=== PATIENT | female | born 1995 | race Caucasian/White ===

== ENCOUNTER 2017-12-11 07:00 | Inpatient (IN) | payer OTHER ==
[~2017-12-11] VITALS: Ht 172.7 cm; Wt 81.6 kg
[2017-12-11 15:42] LABS: ABSOLUTE BASOPHIL COUNT 0 /CUMM (0.0-0.2); ABSOLUTE EOSINOPHIL COUNT 0 /CUMM (0.0-0.7); ABSOLUTE GRANULOCYTE CT 12.2 /CUMM (1.4-6.5); ABSOLUTE LYMPH COUNT 1.5 /CUMM (1.2-3.4); ABSOLUTE MONOCYTE COUNT 0.5 /CUMM (0.10-0.60); BASOPHIL % 0.3 % (0.0-2.0); EOSINOPHIL % 0.2 % (0-5); HEMATOCRIT 24.7 % (37-47); MEAN CORPUSCULAR HGB 21.1 PG (27.0-31.0); MEAN CORPUSCULAR HGB CONC 30.2 G/DL (33.0-37.0); MEAN PLATELET VOLUME 8.2 FL (7.4-10.4); PLATELET COUNT 388 /CUMM (130-400); RBC DISTRIBUTION WIDTH 18.9 % (11.5-14.5); RED BLOOD CELL CT 3.53 /CUMM (4.20-5.40); WHITE BLOOD CELL COUNT 14.3 /CUMM (4.8-10.8)
[2017-12-11 15:43] LABS: GRANULOCYTE % 85.4 % (42.2-75.2)
[2017-12-11 22:13] LABS: ABSOLUTE BASOPHIL COUNT 0 /CUMM (0.0-0.2); ABSOLUTE EOSINOPHIL COUNT 0.1 /CUMM (0.0-0.7); ABSOLUTE GRANULOCYTE CT 10.3 /CUMM (1.4-6.5); ABSOLUTE LYMPH COUNT 1.8 /CUMM (1.2-3.4); ABSOLUTE MONOCYTE COUNT 0.7 /CUMM (0.10-0.60); BASOPHIL % 0.3 % (0.0-2.0); EOSINOPHIL % 0.4 % (0-5); GRANULOCYTE % 79.8 % (42.2-75.2); MEAN CORPUSCULAR HGB 21.4 PG (27.0-31.0); MEAN CORPUSCULAR HGB CONC 30.7 G/DL (33.0-37.0); MEAN CORPUSCULAR VOLUME 69.8 FL (81.0-99.0); MEAN PLATELET VOLUME 8.3 FL (7.4-10.4); PLATELET COUNT 379 /CUMM (130-400); RBC DISTRIBUTION WIDTH 18.5 % (11.5-14.5); RED BLOOD CELL CT 3.44 /CUMM (4.20-5.40); WHITE BLOOD CELL COUNT 12.9 /CUMM (4.8-10.8)
[2017-12-12 04:48] VITALS: BP 118/66
[2017-12-12 09:15] LABS: ABSOLUTE BASOPHIL COUNT 0 /CUMM (0.0-0.2); ABSOLUTE EOSINOPHIL COUNT 0.1 /CUMM (0.0-0.7); ABSOLUTE GRANULOCYTE CT 7.1 /CUMM (1.4-6.5); ABSOLUTE LYMPH COUNT 1.8 /CUMM (1.2-3.4); ABSOLUTE MONOCYTE COUNT 0.7 /CUMM (0.10-0.60); BASOPHIL % 0.4 % (0.0-2.0); EOSINOPHIL % 0.9 % (0-5); GRANULOCYTE % 72.6 % (42.2-75.2); HEMATOCRIT 24.6 % (37-47); MEAN CORPUSCULAR HGB 21.3 PG (27.0-31.0); MEAN CORPUSCULAR HGB CONC 30.4 G/DL (33.0-37.0); MEAN CORPUSCULAR VOLUME 70.1 FL (81.0-99.0); MEAN PLATELET VOLUME 8.3 FL (7.4-10.4); PLATELET COUNT 388 /CUMM (130-400); RBC DISTRIBUTION WIDTH 18.8 % (11.5-14.5); RED BLOOD CELL CT 3.51 /CUMM (4.20-5.40); WHITE BLOOD CELL COUNT 9.7 /CUMM (4.8-10.8)
--- NOTE | 2017-12-12 19:00 | PN- Post Delivery/GYN ---
Subjective Subjective: NO C/O; WILL CONSIDER ANTIDEPRESSANT Objective Last 24 Hrs of Vital Signs/I&O Vital Signs Date Time Temp Pulse Resp B/P B/P Pulse O2 O2 Flow FiO2 Mean Ox Delivery Rate 12/12 0448 118/66 Physical Exam: ABD SOFT EXT NT Assessment/Plan Assessment/Plan S/P C/S POD1 STABLE VILLALTA D/C'D INCRREASE DIET ADVANCE ACTIVBITY Problem List: 1. 2.
[2017-12-12] MEDS ORDERED: DOCUSATE SODIU100 M3 PO (19:05)
[2017-12-12] MEDS ORDERED: IBUPROFEN800 M1 PO (19:05)
[2017-12-12] MEDS ORDERED: SERTRALINE HCL50 MG PO (19:05)
--- NOTE | 2017-12-12 19:08 | Operative Report ---
Operative/Inv Procedure Report Surgery Date: 12/11/17 Name of Procedure: Primary Pre-Operative Diagnosis: Breech presentation Post-Operative Diagnosis: Same Estimated Blood Loss: 800 mL Surgeon/Plant Operator Helper: Farnaz James MD,John Peña M.D. Anesthesia: spinal Operative/Procedure Note Note: The patient was taken to the operating room and placed on the OR table in the sitting position where she underwent spinal anesthetic without complication. She was repositioned in modified dorsal supine block under her right. A Villa catheter was placed and Venodyne boots were activated. The abdomen was prepped and draped in usual sterile fashion. The skin was tested and a Pfannenstiel skin incision was made with a scalpel and taken down to the layer of the fascia. Fascia was nicked in the midline and extended bilaterally. The underlying rectus muscles were and the peritoneal cavity was entered bluntly. A low transverse uterine incision at the scalpel and a liveborn female infant was delivered through robb breech to the appropriate maneuvers and handed off to the waiting cryogenic transport driver. The placenta was then manually removed. The uterus was exteriorized and cleaned with wet lap sponge. It was closed in 2 layers of 0 Polysorb the second indicating the first. The abdomen and pelvis were copiously irrigated. Uterus placed back into the abdominal cavity and the suture line was once again visualized and noted be hemostatic. Fascia was closed using 0 Polysorb in a running nonlocking fashion. Subcutaneous tissues were irrigated. Skin was closed using mayra a dry sterile dressing was applied to the wound patient was sent to recovery in good condition. All needle, sponge, and instrument counts are correct at the end the procedure 2.
--- NOTE | 2017-12-13 08:27 | PN- OBGYN ---
Surgical Brief Attending Note Brief Attending Note: Seen and evaluated States pain controlled States always been anemic. No dizziness noted with ambulation States no BM but passing gas Vitals per paper record Lungs clear Abdomen soft and fundus firm Wound mayra intact 1+ edema and no homans Hct 24.6 Pod#2 s/p LTCS for malpresentation Heme. Iron deficiency anemia noted. Taking iron daily. Continue same and iron rich foods discussed. No orthostatic changes Pain mgmt discussed and benefits of binder reviewed Psych. Started on Sertraline VTE prophylaxis with ambulation and avoidance of dehydration Tolerating diet DC home 12/14/17 with one week follow up with Dr Ratliff.
--- NOTE | 2017-12-14 09:00 | Surgical Discharge Summary ---
Visit Information Visit Dates Admission Date: 12/11/17 Discharge Date: 12/14/17 History of Present Illness Chief Complaint: Breech presentation Medical History Blood Transfusion Hx: No Neurological: NONE EENT: NONE Cardiovascular: NONE Respiratory: NONE Gastrointestinal: CELIAC DISEASE Hepatic: NONE Renal: NONE Musculoskeletal: NONE Psychiatric: depression Endocrine: NONE Blood Disorders: NONE Cancer(s): NONE [employer]/Reproductive: NONE Other Medical Hx: na History of MRSA: No History of VRE: No History of CDIFF: No Isolation History: Standard Pneumonia Vaccine Status: Never received in past Influenza Vaccine Status Never received in past Tetanus Status: not up to date Surgical History Pertinent Surgical History: appendectomy Psychosocial History Where Do You Live? Home Who Do You Live With? Spouse Services at Home: None What is Your Primary Language? [place] Tobacco History: na ETOH Use: denies use Illicit Drug Use History: na Other Addictive Behavior: na Review of Systems: Denies issues of breast feeding Tolerating diet Pain controlled Positive flatus Denies nausea Physical Exam: Aox3 NAD Lungs clear Abdomen soft wound intact No [facility] Course Course Attending Physician: John Dietz MD [facility]: S/p LTCS and uncomplicated course Complications: None Allergies: Coded Allergies: benzonatate (From [employer] KIMANI) (Intermediate, HIVES 12/11/17) Significant Procedures: LTCS Pertinent Lab Results: Rh positive Hct 24 Disposition Summary Disposition Principal Diagnosis: Malpresentation of fetus Additional Diagnosis: Iron deficiency anemia Depression Discharge Disposition: home or self care Discharge Instructions General Discharge Information Code Status: Full Code Patient's Diet: Regular Patient's Activity: As tolerated Follow-Up Instructions/Appts: 2-3 days for CBC assessment and 7-[address] Ratliff Medications at Discharge Discharge Medications: Start taking the following new medications: Ibuprofen (Ibuprofen) 800 MG TABLET 800 Milligram ORAL EVERY SIX HOURS NEEDED as needed for UTERINE CRAMPING Qty = 36 No Refills Sertraline HCl (Sertraline HCl) 50 MG TABLET 50 Milligram ORAL DAILY Qty = 30 No Refills Docusate Sodium (Docusate Sodium) 100 MG CAPSULE 100 Milligram ORAL AT BEDTIME as needed for STOOL SOFTENER Qty = 60 No Refills Copies To: Genie GANDHI,Farzad Tinoco MD Review Statement Attending Statement Attending MD Statement: examined this patient, discussed w/nursing Attending Assessment/Plan: As outlined Tdap prior to dc. COunseilng provided
== END 2017-12-14 12:00 | DRG 540 ==
LOC: GNO 07:00
PROVIDERS: Obstetrics & Gynecology
PROC: 10D00Z1 Extraction of Products of Conception, Low, Open Approach (ICD-10-PCS; principal; 2017-12-11)
DX: O32.1XX0 Maternal care for breech presentation, not applicable or unspecified (principal); O99.02 Anemia complicating childbirth; D64.9 Anemia, unspecified; O99.344 Other mental disorders complicating childbirth; F32.9 Major depressive disorder, single episode, unspecified; Z3A.39 39 weeks gestation of pregnancy; Z37.0 Single live birth
CPT/HCPCS: GNOS; 80307; 81001; 86920; 87086; J0690; J1885; J2405; J2765; J7120